=== PATIENT | male | born 1950 | race Caucasian/White ===

== ENCOUNTER → 2017-09-14 | Outpatient (CLI) | payer OTHER ==
[2017-09-14] VITALS (7 sets, daily range): BP systolic 118–150; BP diastolic 65–85
[~2017-09-14] VITALS: Ht 170.2 cm; Wt 88.5 kg
[~2017-09-14] MED LIST: ASPIR 8181 MG PO; ASPIRIN81 M2 PO; CRESTOR10 MG PO; IMDUR 30 MG TAB30 M1 PO; LISINOPRIL-HCT1 EAC2 PO; PAXIL10 MG PO; ZYRTEC10 M5 PO
[2017-09-14 11:30] LABS: HEMATOCRIT 39.4 % (42.0-52.0); HEMOGLOBIN 13.3 gm/dL (14.0-18.0); MCH 31.5 pg (26.0-34.0); MCHC 33.7 g/dL (28.0-37.0); MCV 93.4 fL (80.0-100.0); MPV 8.3 fl. (7.2-11.1); RBC 4.21 mil/uL (4.50-6.00); RDW-CV 14.4 % (10.5-14.5); WBC 7.5 thou/uL (4.0-11.0)
--- NOTE | 2017-09-14 11:35 | EKG ---
[place] [address] ELECTROCARDIOGRAM REPORT Name: ABEL LEDEZMA Room: [facility]#: [id number] Admission: 09/14/17 Attend Phys: James Mckinney MD Discharge: Date of : 52 Report #: [id number] THIS REPORT FOR: //name// [facility] Test Date: 2017-09-14 Test Time: 11:10:58 Pat Name: ABEL LEDEZMA Department: Room: Gender: M Supply Manager: : 1950 Requested By: James Mckinney Order Number: [id number] Reading MD: James Mckinney Measurements Intervals [place] Rate: 73 P: 29 WA: 158 QRS: 3 QRSD: 93 T: 50 QT: 396 QTc: 437 Interpretive Statements Sinus rhythm No previous ECG available for comparison Electronically Signed On 09-14-2017 11:35:41 CDT by James Mckinney [email or web address] <ELECTRONICALLY SIGNED> By: James Mckinney MD, [facility] 09/14/17 1135 1110 1110 James Mckinney MD, FACC /EPI
[2017-09-14 11:42] LABS: APTT 27.5 Seconds (25.0-31.3); INR 1.1; PROTIME 10.5 Seconds (9.20-11.50)
[2017-09-14 11:46] LABS: ANION GAP 8 mmol/L (7-16); BUN 23 mg/dL (7-18); CHLORIDE 103 mmol/L (98-107); CO2 27 mmol/L (21-32); CREATININE 1.3 mg/dL (0.6-1.3); GLUCOSE 94 mg/dL (70-99); POTASSIUM 4.1 mmol/L (3.5-5.1); SODIUM 138 mmol/L (136-145)
[2017-09-14 11:51] LABS: ALBUMIN 3.9 g/dL (3.4-5.0); ALKALINE PHOSPHATASE 58 U/L (46-116); CHOLESTEROL 114 mg/dL (<200); HDL CHOLESTEROL 35 mg/dL (>40); LDL CHOLESTEROL 57 mg/dL (<100); SERUM ASSESSMENT Clear; SGOT 24 U/L (15-37); SGPT 48 U/L (30-65); TC:HDL 3.3 Ratio (Not establshd); TOTAL BILIRUBIN 0.4 mg/dL (<0.1-1.0); TOTAL PROTEIN 7.2 g/dL (6.4-8.2); TRIGLYCERIDE 114 mg/dL (<150); VLDL 23 mg/dL (<40)
--- NOTE | 2017-09-14 16:40 | CARD ---
[address] [address] CARDIAC CATH REPORT Name: ABEL LEDEZMA Room: [facility] KAI Treadwell#: [id number] Admission: 09/14/17 Attend Phys: James Mckinney MD Discharge: Date of : 52 Report #: [id number] THIS REPORT FOR: //name// APPROVED REPORT Study performed: 09/14/2017 11:32:47 Patient Details Patient Status: Out-Patient Room #: The patient is a 67 year-old male Procedures Performed cath pci Indication Positive stress test Risk Factors Arterial Hypertension, Hypercholesterolemia Admission/Lab Medications/Medications given during procedure Heparin Unfract. Procedure Narrative The patient was brought electively to the Cardiac Catheterization Laboratory and was prepped and draped in a sterile manner. The right wrist was infiltrated with 1% Lidocaine subcutaneous anesthesia. A 6 fr sheath was inserted into the right radial artery. Coronary angiography was performed using coronary diagnostic catheters. The right coronary system was accessed and visualized with a Diagnostic catheter. The left coronary system was accessed and visualized with a Diagnostic catheter. The left ventricle was accessed and visualized with a Diagnostic catheter. Left ventricular/Aortic Valve gradient assessed via catheter pullback. Left ventriculogram was performed in MCKENZIE projection. Closure device was deployed with a 6 Fr vascband. The patient tolerated the procedure well and there were no complications associated with the procedure. There was no hematoma. Coronary Angiography The patient's coronary anatomy is right dominant. Diagnostic Cath Left Main normal LAD proximal 75% stenosis at bifurcation of large diagonal, proximal 80% stenosis involving bifurcation of Diagonal #2, more distal LAD [address] [address] CARDIAC CATH REPORT Name: ABEL LEDEZMA Room: [facility].#: [id number] Admission: 09/14/17 Attend Phys: James Mckinney MD Discharge: Date of : 52 Report #: [id number] has 80% stenosis Diagonal 1 normal ,large Diagonal 2 mild disease 30-40% Circumflex mild disease OM1 proximal 70%, medium sized Right Coronary mid body ulcerated plaque with 60-70% stenosis, dom. R PDA 60% RPLV small mild 40% Left Ventriculography The left ventricle is normal in size with normal contractility. The left ventricular ejection fraction is estimated to be 50-55%. PCI Technique Lesion Anticoagulation was achieved with Heparin. Patient was preloaded with Brillinta. Percutaneous coronary intervention was performed on the mid left anterior descending artery segment. The lesion stenosis prior to intervention was 90% with AMADO 3 flow. A 6 fr xb3.5lad Guide Catheter was used to engage the lm ostium. A bmw Interventional Guidewire was used to cross the lesion. Final angiography reveals 90 % stenosis with AMADO 3 flow. COMMENTS Additional views demonstrated a 60% stenosis in the mid lad just after the takeoff of the 1st diagonal, 80% stenosis in the mid lad just after the takeoff of the second diagonal branch, and a 90% more distal stenosis in the mid lad. Attempted to place a BMW wire into the distal lad, but because of the angle, the wire continued to go into the second diagonal branch instead. It was decided to abandon the procedure, and refer the patient for CABG. Conclusion 1. multivessel CAD as outlined above including two bifurcation LAD stenoses, Lcx, mid RCA 2. normal LV function Recommendations CABG Diagnostic Cath Approved by: James Mckinney MD Date/Time: <ELECTRONICALLY SIGNED> By: Alan Jara MD, FACC 09/14/17 1639 1639 [id number] Jara MD, FACC /INF
--- NOTE | 2017-10-05 08:10 | H ---
[place] [address] HISTORY AND PHYSICAL Name: ABEL LEDEZMA [id number] Admission: 09/14/17 Attend Phys: James Mckinney MD Discharge: Date of : 52 Report #: [id number] THIS REPORT FOR: //name// CC: Shanda Mckinney DATE OF SERVICE: 09/14/2017 REQUESTING PHYSICIAN: Dr. Shanda Foy. CHIEF COMPLAINT: Chest pain, fatigue, abnormal stress test. HISTORY OF PRESENT ILLNESS: The patient is a 67-year-old with numerous cardiovascular risk factors, had a preoperative stress echo for shoulder surgery. There was a subtle inferior wall abnormality and mild ECG changes. Historically, he had normal LV function, no documented history of heart disease, so he proceeded with shoulder surgery without complication and now is scheduled for a diagnostic cardiac catheterization. He denies exertional chest pain or shortness of breath, but will have increasing fatigue with only mild activity now. He has numerous cardiovascular risk factors. PAST MEDICAL HISTORY: He has asymptomatic bradycardia, has a history of abnormal coronary calcium scoring in the 600 range. He is a tobacco user actively. He has hypertension. HOME MEDICATIONS: Include atorvastatin 10 mg daily, HCTZ 25 mg daily, lisinopril 20 mg daily. SOCIAL HISTORY: He is a smoker. . FAMILY HISTORY: Unremarkable. ALLERGIES: He has no known drug allergies. PAST SURGICAL HISTORY: He had right-sided rotator cuff surgery. REVIEW OF SYSTEMS: CONSTITUTIONAL: Negative for decreased appetite, diaphoresis. GENITOURINARY: No dysuria or hematuria. HENT: Negative for nosebleeds. EYES: Negative. CARDIOVASCULAR: Positive for dyspnea with exertion. Positive fatigue[place] [address] HISTORY AND PHYSICAL Name: ABEL LEDEZMA Room: [facility]#: [id number] Admission: 09/14/17 Attend Phys: James Mckinney MD Discharge: Date of : 52 Report #: [id number] RESPIRATORY: Negative for cough or COPD type symptoms. HEMATOLOGIC: No anemia or bleeding disorders. GASTROINTESTINAL: No hematemesis or melena. MUSCULOSKELETAL: Positive arthritis. NEUROLOGIC: Denies slurred speech, numbness, visual changes. PHYSICAL EXAMINATION: VITAL SIGNS: Blood pressure 122/78, heart rate 78, weight is 201 pounds. GENERAL: This is a pleasant elderly male who is alert, oriented, in no apparent distress. HEENT: Eyes, EOMs are intact. No facial asymmetry. NECK: Supple. No jugular venous distention. CARDIOVASCULAR: Regular, I cannot hear a murmur. ABDOMEN: Soft, nontender, nondistended. EXTREMITIES: No peripheral edema. OUTPATIENT LABORATORY DATA: Glucose 92, BUN 26, creatinine 1.2, sodium 143, total cholesterol is 194 with LDL 131, HDL 39. IMPRESSION AND PLAN: 1. Fatigue, shortness of breath. This could be anginal equivalent. He had abnormalities on a stress testing in the inferior wall. 2. Hypertension. This is stable on current therapy. 3. Hyperlipidemia. We will reassess his lipids based on his coronary findings. 4. Abnormal calcium score. 5. Bradycardia. He is asymptomatic. On a stress test, he did achieve an adequate heart rate but had functional limitations. <ELECTRONICALLY SIGNED> By: Alan Jara MD, FACC 10/05/17 0810 1123 [id number] Mckinney MD, FACC /nt
== END | disposition home or self-care (01) ==
LOC: M.CL 10:33
PROVIDERS: Internal Medicine Cardiovascular Disease
DX: I25.10 Atherosclerotic heart disease of native coronary artery without angina pectoris (principal); I10 Essential (primary) hypertension; E78.00 Pure hypercholesterolemia, unspecified; F17.210 Nicotine dependence, cigarettes, uncomplicated; Z79.82 Long term (current) use of aspirin; Z98.890 Other specified postprocedural states; Z79.899 Other long term (current) drug therapy; Z79.01 Long term (current) use of anticoagulants

== ENCOUNTER → 2017-10-17 | Outpatient (CLI) | payer OTHER, MEDICARE ==
--- NOTE | 2017-10-17 15:38 | 2DMMODE ---
[place] [address] 2 D/M-MODE ECHOCARDIOGRAM Name: ABEL LEDEZMA Room: [facility]#: [id number] Admission: 10/17/17 Attend Phys: James Mckinney, Discharge: Date of : 52 Date of Service: 10/17/17 1537 Report #: [id number] THIS REPORT FOR: //name// APPROVED REPORT Study performed: 10/17/2017 14:15:37 EXAM: Comprehensive 2D, Doppler, and color-flow Echocardiogram Patient Location: Out-Patient BSA: 2.02 HR: 58 bpm BP: 124/86 mmHg Other Information Study Quality: Fair Indications CAD 2D Dimensions LVEF(%): 49.55 (>50%) IVSd: 13.36 (7-11mm) LVOT Diam: 20.86 (18-24mm) LVDd: 43.80 mm PWd: 11.54 (7-11mm) Ascending Ao: 33.51 (22-36mm) LVDs: 32.89 (25-40mm) Aortic Root: 30.04 mm Shook's LVEF: 49.55 % Volumes Left Atrial Volume (Systole) LA ESV Index: 16.50 mL/m2 Aortic Valve AoV Peak Brenden.: 1.32 m/s AO Peak Gr.: 6.97 mmHg LVOT Max P.59 mmHg AO Mean Gr.: 3.71 mmHg LVOT Mean P.57 mmHg LVOT Max V: 0.95 m/s AO V2 VTI: 22.41 cm LVOT Mean V: 0.57 m/s XOCHILT (VTI): 2.54 cm2 LVOT V1 VTI: 16.68 cm Mitral Valve E/A Ratio: 0.74 MV Decel. Time: 263.14 ms MV E Max Brenden.: 0.52 m/[place] [address] 2 D/M-MODE ECHOCARDIOGRAM Name: ABEL LEDEZMA Room: [facility]#: [id number] Admission: 10/17/17 Attend Phys: James Mckinney, Discharge: Date of : 52 Date of Service: 10/17/17 1537 Report #: [id number] MV PHT: 76.31 ms MVA (PHT): 2.88 cm2 TDI E/Lateral E': 8.67 E/Medial E': 8.67 Medial E' Brenden.: 0.06 m/s Lateral E' Brenden.: 0.06 m/s Pulmonary Valve PV Peak Brenden.: 0.89 m/s PV Peak Gr.: 3.16 mmHg Tricuspid Valve RAP Estimate: 5.00 mmHg TR Peak Gr.: 21.12 mmHg RVSP: 26.12 mmHg PA Pressure: 26.12 mmHg Left Ventricle The left ventricle is normal size. There is normal LV segmental wall motion. There is normal left ventricular wall thickness. Left ventricular systolic function is normal. The left ventricular ejection fraction is within the normal range. LVEF is 60-65%. Grade I - abnormal relaxation pattern. Right Ventricle The right ventricle is normal size. The right ventricular systolic function is normal. Atria The left atrium size is normal. The right atrium size is normal. Aortic Valve The Aortic valve is sclerotic. Trace aortic regurgitation. There is no aortic valvular stenosis. Mitral Valve Mild mitral annular calcification. Trace mitral regurgitation. No evidence of mitral valve stenosis. Tricuspid Valve The tricuspid valve is normal in structure. Trace tricuspid regurgitation. Pulmonic Valve The pulmonary valve is normal in structure. [place] [address] 2 D/M-MODE ECHOCARDIOGRAM Name: ABEL LEDEZMA Room: [facility]#: [id number] Admission: 10/17/17 Attend Phys: James Mckinney, Discharge: Date of : 52 Date of Service: 10/17/17 1537 Report #: [id number] Great Vessels The aortic root is normal in size. IVC is normal in size and collapses with >50% inspiration Pericardium There is no pericardial effusion. <Conclusion> The left ventricle is normal size. There is normal left ventricular wall thickness. Left ventricular systolic function is normal. The left ventricular ejection fraction is within the normal range. LVEF is 60-65%. Grade I - abnormal relaxation pattern. The right ventricle is normal size. The left atrium size is normal. The Aortic valve is sclerotic. Trace aortic regurgitation. There is no aortic valvular stenosis. Mild mitral annular calcification. Trace mitral regurgitation. No evidence of mitral valve stenosis. The tricuspid valve is normal in structure. Trace tricuspid regurgitation. IVC is normal in size and collapses with >50% inspiration There is no pericardial effusion. There is normal LV segmental wall motion. <ELECTRONICALLY SIGNED> By: Jairo Ovalles MD, FACC 10/17/17 1537 [id number] Jairo Ovalles MD, FACC /INF
== END ==
LOC: M.RAD 10-04 11:09
DX: Z01.810 Encounter for preprocedural cardiovascular examination (principal)